=== PATIENT | male | born 1970 | race Two or more races ===

== ENCOUNTER → 2022-04-07 | Emergency (ER) | payer OTHER ==
[~2022-04-07] VITALS: Ht 175.3 cm; Wt 93.9 kg
[~2022-04-07] MED LIST: IV NS 0.9% 1,000 ML BAG IV ONE; LABETALOL HCL IV 100MG VIAL IV PRN; LABETALOL HCL IV 100MG VIAL ONE
--- NOTE | 2022-04-07 12:45 | NUR ---
PT STATES THAT "I JUST USED THE RESTROOM THEN AFTER THAT I DIDN'T KNOW WHERE I WAS BUTI WAS JUST HOME, I ALSO GOT DIZZY", DENIES DIZZINESS UPON ARRIVAL
--- NOTE | 2022-04-07 12:47 | NUR ---
HOOKED TO MONITOR , WAITING FOR MD MACIAS
--- NOTE | 2022-04-07 12:50 | NUR ---
ESTABLISHED IV LINE 20 G RIGHT AC , BLOOD SAMPLE OBTAINED SENT TO LAB
--- NOTE | 2022-04-07 13:50 | NUR ---
TECH AT BED SIDE FOR EKG
[2022-04-07 14:14] LABS: BASOPHILS % (AUTO) 0.7 % (0.0-2.0); EOSINOPHILS % (AUTO) 4.9 % (0.0-6.0); HEMATOCRIT 47 % (39-51); HEMOGLOBIN 16.2 g/dL (13.5-17.5); LYMPHOCYTES # (AUTO) 1.6 K/uL (0.8-4.8); LYMPHOCYTES % (AUTO) 27.3 % (20.0-44.0); MEAN CORPUSCULAR HGB CONC 35 g/dl (31.0-36.0); MEAN CORPUSCULAR VOLUME 87 fL (80-96); MONOCYTES # (AUTO) 0.6 K/uL (0.1-1.30); MONOCYTES % (AUTO) 9.8 % (2.0-12.0); NEUTROPHILS # (AUTO) 3.4 K/uL (1.8-8.9); NEUTROPHILS % (AUTO) 57.3 % (43.0-81.0); PLATELET COUNT (AUTO) 181 K/uL (150-450); RED BLOOD CELL COUNT(AUTO) 5.36 MIL/uL (4.5-6.0); WHITE BLOOD COUNT (AUTO) 5.9 K/uL (4.3-11.0)
--- NOTE | 2022-04-07 14:15 | NUR ---
TAKEN TO CT
[2022-04-07 14:21] LABS: CALCIUM, SERUM 8.9 mg/dL (8.5-10.1); CARBON DIOXIDE 29 mmol/L (21-32); CHLORIDE 103 mmol/L (98-107); CREATININE 0.7 mg/dL (0.6-1.3); GLUCOSE 86 mg/dL (74-106); POTASSIUM 3.9 mmol/L (3.5-5.1); SODIUM SERUM 139 mmol/L (136-145); UREA NITROGEN, BLOOD 14 mg/dL (7-18)
[2022-04-07 15:23] VITALS: BP 155/68
--- NOTE | 2022-04-07 15:23 | NUR ---
IV removed. Catheter intact and site benign. Pressure and 4x4 applied to site. No bleeding noted.
--- NOTE | 2022-04-07 15:23 | NUR ---
Patient discharged to home in stable condition. Written and verbal after care instructions given. Patient verbalizes understanding of instruction.
== END | disposition home or self-care (01) ==
LOC: ER 12:40
DX: R55 Syncope and collapse (principal); G45.4 Transient global amnesia; R51.9 Headache, unspecified; I10 Essential (primary) hypertension
CPT/HCPCS: 99285; 96374; 70450; 71045; 96361; 93005; 85025; 80048; 36415; 84484; J3490

== ENCOUNTER 2022-10-26 21:37 | Emergency (ER) | payer OTHER ==
[~2022-10-26] VITALS: Ht 170.2 cm; Wt 99.8 kg
--- NOTE | 2022-10-26 22:19 | NUR ---
US TECH AT PT'S BEDSIDE
--- NOTE | 2022-10-26 22:19 | NUR ---
BIBSELF FROM HOME C/O L TESTICLE PAIN SINCE YESTERDAY. HX PROSTATE CA
--- NOTE | 2022-10-26 22:37 | NUR ---
URINE COLLECTED AND SENT TO LAB
[2022-10-26] MEDS ORDERED: KETOROLAC TROMETHAMINE INJ 60 MG/2 ML VIAL IM ONE (23:00)
[2022-10-26] MEDS ORDERED: CEFTRIAXONE 500 MG VIAL IM ONE (23:00)
[2022-10-26] MEDS ORDERED: DOXYCYCLINE HYCLATE (100 MG) 100 MG TABLET PO ONE (23:00)
[2022-10-26] MEDS ORDERED: LIDOCAINE HCL/PF 2 % 5ML SDV 5 ML VIAL ONE (23:05)
[2022-10-26] MEDS ORDERED: DOXYCYCLINE HYCLATE (100 MG) 100 MG TABLET ONE ×2 (23:05→23:08)
[2022-10-26] MEDS ORDERED: CEFTRIAXONE 500 MG VIAL ONE (23:05)
[2022-10-26] MEDS ORDERED: DOXY-326 PO (23:12)
[2022-10-26] MEDS ORDERED: IBUP-1955 PO (23:12)
[2022-10-26 23:22] LABS: BILIRUBIN,URINE NEGATIVE (NEGATIVE); COLOR,URINE YELLOW (YELLOW); LEUKOCYTE ESTERASE ,URINE NEGATIVE (NEGATIVE); NITRITE, URINE NEGATIVE (NEGATIVE); PROTEIN,URINE NEGATIVE (NEGATIVE); UGLUCOSE NEGATIVE (NEGATIVE)
--- NOTE | 2022-10-26 23:55 | NUR ---
Patient discharged to home in stable condition. Written and verbal after care instructions given. Patient verbalizes understanding of instruction.
[2022-10-27 00:07] VITALS: BP 154/87
== END 2022-10-27 00:07 | disposition home or self-care (01) ==
LOC: ER 21:40
DX: N45.1 Epididymitis (principal); I10 Essential (primary) hypertension; Z60.2 Problems related to living alone
CPT/HCPCS: 99285; 96372; 76870; 81003; 87491; 87591; J0696; J3490